=== PATIENT | female | born 1960 | race Caucasian/White ===

== ENCOUNTER 2016-08-28 11:24 | Emergency (ER) | payer MEDICAID, OTHER ==
[~2016-08-28] VITALS: Ht 157.5 cm; Wt 73.0 kg
[2016-08-28 11:27] VITALS: Ht 157.5 cm; Wt 73.0 kg
[2016-08-28] MEDS ORDERED: SOD CHLORIDE 0.9% 2,000 ML IV STA (12:48)
[2016-08-28] MEDS ORDERED: LACTATED RINGER'S 1,000 ML IV STA (12:48)
[2016-08-28 13:25] LABS: BASOPHILS % 0.4 % (0.0-2.0); EOSINOPHILS # 0.1 10^3/ul (0.0-0.5); EOSINOPHILS % 1.4 % (0.0-7.0); HEMOGLOBIN 13.8 g/dl (12.0-16.0); LYMPHOCYTES # 2.1 10^3/ul (0.8-2.9); LYMPHOCYTES % 27.1 % (15.0-51.0); MEAN CORPUSCULAR HEMOGLOBIN 30.7 pg (29.0-33.0); MEAN CORPUSCULAR HGB CONC 33.6 g/dl (32.0-37.0); MEAN CORPUSCULAR VOLUME 91.2 fl (82.0-101.0); MEAN PLATELET VOLUME 8.8 fl (7.4-10.4); MONOCYTE # 0.7 10^3/ul (0.3-0.9); MONOCYTES % 8.9 % (0.0-11.0); NEUTROPHIL # 4.8 10^3/ul (1.6-7.5); NEUTROPHILS % 62.2 % (39.0-77.0); PLATELET COUNT 257 10^3/UL (140-440); RED CELL DISTRIBUTION WIDTH 13.6 % (11.5-14.5); UNCORRECTED WBC 7.7 10^3/ul (4.8-10.8); WHITE BLOOD COUNT 7.7 10^3/ul (4.8-10.8)
[2016-08-28 13:29] LABS: CONDITION 1
[2016-08-28 13:37] LABS: POTASSIUM 4.1 mmol/L (3.5-5.1)
[2016-08-28 13:39] LABS: CREATININE 0.47 mg/dl (0.44-1.00)
[2016-08-28 13:40] LABS: CALCIUM 8.5 mg/dl (8.4-10.2)
[2016-08-28] MEDS ORDERED: NITR-58 PO (14:14)
[2016-08-28] MEDS ORDERED: METF500T4 PO (14:14)
--- NOTE | 2016-08-28 14:32 | ERD ---
ER Documentation Chief Complaint Date/Time DATE: 08/28/16 TIME: 14:30 Chief Complaint hyperglycemia sent by pmd glucose was 447 HPI Patient is a 55-year-old female with diabetes who presents with hyperglycemia. She has had diabetes for 1 year but has never been treated for it per the family. The patient went to her clinic today and had an elevated blood sugar of over 400 so was sent to the ER for further evaluation. She denies pain. She has had blood in her urine and thinks that she has a urine infection. She had urine ketones on her clinic urine sample. Upon review of old medical records this is the patient's first visit to the emergency department. ROS All systems reviewed and are negative except as per history of present illness. Medications Home Meds Active Scripts Nitrofurantoin Monohyd Macrocr* (Macrobid*) 100 Mg Capsr, 100 MG PO BID for 7 Days, CAP Prov:PB CASILLAS MD 08/28/16 Metformin* (Glucophage*) 500 Mg Tab, 500 MG PO BID, #60 TAB Prov:PB CASILLAS MD 08/28/16 Allergies Allergies: Coded Allergies: No Known Allergy (Unverified , 08/28/16) PMhx/Soc Positive for diabetes Medical and Surgical Hx: Unable to obtain Hx Alcohol Use: No Hx Substance Use: No Hx Tobacco Use: No Smoking Status: Never smoker FmHx Family History: diabetes Physical Exam Vitals Vital Signs Date Time Temp Pulse Resp B/P Pulse Ox O2 Delivery O2 Flow Rate FiO2 08/28/16 11:27 98.0 72 18 114/83 98 Physical Exam Const: No acute distress Head: Atraumatic Eyes: Normal Conjunctiva ENT: Normal External Ears, Nose and Mouth. Neck: Full range of motion..~ No meningismus. Resp: Clear to auscultation bilaterally Cardio: Regular rate and rhythm, no murmurs Abd: Soft, non tender, non distended. Normal bowel sounds Skin: No petechiae or rashes Back: No midline or flank tenderness Ext: No cyanosis, or edema Neur: Awake and alert Psych: Normal Mood and Affect Result Diagram: 08/28/16 1315 08/28/16 1315 Results 24 hrs Laboratory Tests Test 08/28/16 13:15 Anion Gap 17 Basophils # 0.010^3/ul Basophils % 0.4% Blood Urea Nitrogen 10mg/dl Calcium Level 8.5mg/dl Carbon Dioxide Level 25mmol/L Chloride Level 100mmol/L Creatinine 0.47mg/dl Eosinophils # 0.110^3/ul Eosinophils % 1.4% Glucose Level 333mg/dl Hematocrit 41.0% Hemoglobin 13.8g/dl Lactic Acid Level 1.2mmol/L Lymphocytes # 2.110^3/ul Lymphocytes % 27.1% Mean Corpuscular Hemoglobin 30.7pg Mean Corpuscular Hemoglobin Concent 33.6g/dl Mean Corpuscular Volume 91.2fl Mean Platelet Volume 8.8fl Monocytes # 0.710^3/ul Monocytes % 8.9% Neutrophils # 4.810^3/ul Neutrophils % 62.2% Nucleated Red Blood Cells # 0.010^3/ul Nucleated Red Blood Cells % 0.0/100WBC Platelet Count 05633^3/UL Potassium Level 4.1mmol/L Red Blood Count 4.5010^6/ul Red Cell Distribution Width 13.6% Sodium Level 138mmol/L White Blood Count 7.710^3/ul Current Medications Medications (Trade) Dose Ordered Sig/Lulu Route PRN Reason Start Time Stop Time Status Last Admin Dose Admin Sodium Chloride 2,000 ml @ 1,000 mls/hr Q2H STAT IV 08/28/16 12:48 08/28/16 14:47 08/28/16 13:13 Lactated Ringer's (Lr) 1,000 ml @ 1,000 mls/hr Q1H STAT IV 08/28/16 12:48 08/28/16 13:47 DC Procedures/MDM Smoking Cessation Therapy: Pt. was lectured for greater than 3 minutes on the health risks of continued smoking and the benefits of cessation. Patient is a 55-year-old female with diabetes who presents with hyperglycemia. The patient has no signs of diabetic ketoacidosis at this time. Her symptoms are consistent with a UTI and I will treat with Macrobid. The patient will be discharged with prescription for Metformin as I do believe she would benefit from treatment for her diabetes. However she will need close follow-up with her primary doctor at the clinic so they can increase the dosage of metformin. I will initially start her on 500 mg twice daily. The patient could return for any worsening symptoms. She is otherwise well-appearing and I doubt serious bacterial infection. Departure Diagnosis: Primary Impression: Hyperglycemia Condition: Fair Patient Instructions: Hyperglycemia (High Blood Sugar) Referrals: Your doctor Additional Instructions: Llame al doctor MAANA y murali ruperto EVELIN PARA DENTRO DE 1-2 MCKENNA.Dgale a la secretaria que nosotros le instruimos hacer esta evelin.Avise o llame si bruce condicin se empeora antes de la evelin. Regresa aqui si peor o no mejor. PB CASILLAS MD Aug 28, 2016 14:32
== END 2016-08-28 15:04 | disposition home or self-care (01) ==
LOC: E/R 11:24
DX: E11.65 Type 2 diabetes mellitus with hyperglycemia (principal); Z79.84 Long term (current) use of oral hypoglycemic drugs
CPT/HCPCS: 36415; 80048; 83605; 85025; J7030; J7120; Z7502